=== PATIENT | male | born 2000 | race Two or more races ===

== ENCOUNTER 2024-04-21 15:38 | Emergency (ER) | payer SELFPAY ==
[~2024-04-21] VITALS: Ht 182.9 cm; Wt 129.4 kg
[2024-04-21] MEDS ORDERED: BACL10TA PO (19:08)
[2024-04-21] MEDS ORDERED: IBUP1TAB5 PO (19:08)
[2024-04-21 19:20] VITALS: BP 111/74; PULSE 76; RESP 18; TEMP 98; O2SAT 97
== END 2024-04-21 19:19 | disposition home or self-care (01) ==
LOC: ER 15:38
DX: S33.5XXA Sprain of ligaments of lumbar spine, initial encounter (principal); S43.401A Unspecified sprain of right shoulder joint, initial encounter; S43.402A Unspecified sprain of left shoulder joint, initial encounter; V89.2XXA Person injured in unspecified motor-vehicle accident, traffic, initial encounter; Y93.89 Activity, other specified; Y92.89 Other specified places as the place of occurrence of the external cause; Y99.8 Other external cause status
CPT/HCPCS: 72100; 73030